=== PATIENT | female | born 1960 | race Caucasian/White ===

== ENCOUNTER → 2017-06-22 | Outpatient (CLI) | payer MEDICARE, OTHER ==
[2017-06-22 09:45] LABS: Basophils % (A) 0 %; CH 27.2; CHCM 30.9; Eosinophils # (A) 0.1 k/uL (0-0.7); Eosinophils % (A) 1 %; HCT 41.7 % (34.0-46.0); HDW 2.32; Hypochromasia Slight; Luc # (Auto) 0.14; Luc % (Auto) 3; Lymphocytes # (A) 1.4 k/uL (1.0-4.8); Lymphocytes % (A) 26 %; MCH 27.5 pg (25.0-35.0); MCHC 31.1 g/dL (31.0-37.0); MCV 88.5 fL (80.0-100.0); Mean Platelet Volume 7.6; Monocytes # (A) 0.3 k/uL (0-1.0); Monocytes % (A) 5 %; Neutrophils # (A) 3.5 k/uL (1.3-7.7); Neutrophils % (A) 65 %; RBC 4.72 m/uL (3.80-5.40); RDW 14.2 % (11.5-15.5); WBC 5.4 k/uL (3.8-10.6); WBC (Perox) 5.98
[2017-06-22 10:04] LABS: ALT 40 U/L (9-52); AST 22 U/L (14-36); Alkaline Phosphatase 64 U/L (38-126); Anion Gap 8 mmol/L; Blood Urea Nitrogen 15 mg/dL (7-17); Calcium 9.6 mg/dL (8.4-10.2); Carbon Dioxide 29 mmol/L (22-30); Chloride 104 mmol/L (98-107); Cholesterol 241 mg/dL (<200); Glucose 93 mg/dL (74-99); HDL Cholesterol 98 mg/dL (40-60); Non-African American GFR(MDRD) >60 (>60 ml/min/1.73 sqM); Potassium 4.3 mmol/L (3.5-5.1); Sodium 141 mmol/L (137-145); Total Bilirubin 0.3 mg/dL (0.2-1.3); Total Protein 7.1 g/dL (6.3-8.2)
== END | disposition home or self-care (01) ==
LOC: LABWHC1 08:36
PROVIDERS: ATTEND Internal Medicine
DX: E11.9 Type 2 diabetes mellitus without complications (principal); J44.9 Chronic obstructive pulmonary disease, unspecified; E55.9 Vitamin D deficiency, unspecified; Z13.9 Encounter for screening, unspecified
CPT/HCPCS: 36415; 80053; 80061; 82306; 85025; 86803

== ENCOUNTER → 2017-07-28 | Outpatient (CLI) | payer MEDICARE, OTHER ==
--- NOTE | 2017-08-02 09:10 | MM ---
Reason for exam: screening (asymptomatic). Last mammogram was performed 1 year and 3 months ago. History: Patient is postmenopausal and is nulliparous. Physical Findings: A clinical breast exam by your physician is recommended on an annual basis and results should be correlated with mammographic findings. MG Screening Mammo w CAD Bilateral CC and MLO view(s) were taken. Prior study comparison: May 11, 2016, bilateral MG 3d screening mammo w/cad. The breast tissue is extremely dense which could obscure a lesion on mammography. Stable benign calcifications. No significant changes when compared with prior studies. ASSESSMENT: Benign, BI-RAD 2 RECOMMENDATION: Routine screening mammogram of both breasts in 1 year.
== END | disposition home or self-care (01) ==
LOC: RADMAMWWP 07:48
PROVIDERS: ATTEND Internal Medicine
DX: Z12.31 Encounter for screening mammogram for malignant neoplasm of breast (principal)
CPT/HCPCS: 77067

== ENCOUNTER → 2017-12-05 | Outpatient (CLI) | payer MEDICARE, OTHER ==
[2017-12-05 08:25] LABS: Basophils % (A) 0 %; Eosinophils # (A) 0.1 k/uL (0-0.7); Eosinophils % (A) 2 %; HCT 43.6 % (34.0-46.0); HGB 13.9 gm/dL (11.4-16.0); Lymphocytes # (A) 1.7 k/uL (1.0-4.8); Lymphocytes % (A) 30 %; MCHC 31.9 g/dL (31.0-37.0); MCV 87.6 fL (80.0-100.0); Mean Platelet Volume 6.7; Monocytes # (A) 0.3 k/uL (0-1.0); Monocytes % (A) 5 %; Neutrophils # (A) 3.4 k/uL (1.3-7.7); Neutrophils % (A) 61 %; Platelet Count 199 k/uL (150-450); RBC 4.98 m/uL (3.80-5.40); RDW 13.6 % (11.5-15.5); WBC 5.6 k/uL (3.8-10.6)
[2017-12-05 08:47] LABS: ALT 27 U/L (9-52); AST 20 U/L (14-36); Albumin 4.3 g/dL (3.5-5.0); Alkaline Phosphatase 60 U/L (38-126); Anion Gap 10 mmol/L; Blood Urea Nitrogen 15 mg/dL (7-17); Calcium 9.5 mg/dL (8.4-10.2); Carbon Dioxide 32 mmol/L (22-30); Chloride 102 mmol/L (98-107); Cholesterol 230 mg/dL (<200); Glucose 139 mg/dL (74-99); HDL Cholesterol 108 mg/dL (40-60); LDL Cholesterol,Calculated 112 mg/dL (0-99); Potassium 4.3 mmol/L (3.5-5.1); Sodium 144 mmol/L (137-145); Total Bilirubin 0.3 mg/dL (0.2-1.3); Triglycerides 48 mg/dL (<150)
== END | disposition home or self-care (01) ==
LOC: LABWHC1 08:00
PROVIDERS: ATTEND Internal Medicine
DX: E11.9 Type 2 diabetes mellitus without complications (principal)
CPT/HCPCS: 36415; 80053; 80061; 85025

== ENCOUNTER → 2018-08-24 | Outpatient (CLI) | payer MEDICARE, OTHER ==
[2018-08-24 10:08] LABS: Basophils % (A) 0 %; Eosinophils # (A) 0.1 k/uL (0-0.7); Eosinophils % (A) 1 %; HCT 43.5 % (34.0-46.0); HGB 13.3 gm/dL (11.4-16.0); Hypochromasia Slight; Lymphocytes # (A) 1.7 k/uL (1.0-4.8); Lymphocytes % (A) 29 %; MCH 26.9 pg (25.0-35.0); MCHC 30.5 g/dL (31.0-37.0); Mean Platelet Volume 6.9; Monocytes # (A) 0.3 k/uL (0-1.0); Monocytes % (A) 5 %; Neutrophils # (A) 3.6 k/uL (1.3-7.7); Neutrophils % (A) 62 %; Platelet Count 196 k/uL (150-450); RBC 4.94 m/uL (3.80-5.40); RDW 13.5 % (11.5-15.5); WBC 5.8 k/uL (3.8-10.6)
[2018-08-24 17:58] LABS: Albumin 4.4 g/dL (3.80-4.90); Albumin/Globulin Ratio 1.91 (1.60-3.17); Anion Gap 13.2 mmol/L (4.00-12.00); Calcium 9.2 mg/dL (8.7-10.3); Carbon Dioxide 25.8 mmol/L (21.6-31.8); Globulin 2.3 g/dL (1.6-3.3); LDL Cholesterol,Calculated 144.4 mg/dL (0.0-131.0); Potassium 4.1 mmol/L (3.5-5.5); Total Bilirubin 0.3 mg/dL (0.3-1.2); Total Protein 6.7 g/dL (6.2-8.2); VLDL Calculation 14.6 mg/dL (5.00-40.00)
== END | disposition home or self-care (01) ==
LOC: LABWHC1 09:04 → EEVIPCON 09:04
PROVIDERS: ATTEND Internal Medicine
DX: E11.9 Type 2 diabetes mellitus without complications (principal); F79 Unspecified intellectual disabilities; E55.9 Vitamin D deficiency, unspecified
CPT/HCPCS: 36415; 80053; 80061; 82306; 84443; 85025

== ENCOUNTER → 2018-08-31 | Outpatient (CLI) | payer MEDICARE, OTHER ==
--- NOTE | 2018-09-17 14:28 | MM ---
Reason for exam: screening (asymptomatic). Last mammogram was performed 1 year and 1 month ago. History: Patient is postmenopausal and is nulliparous. Physical Findings: A clinical breast exam by your physician is recommended on an annual basis and results should be correlated with mammographic findings. MG Screening Mammo w CAD Bilateral CC and MLO view(s) were taken. Prior study comparison: July 28, 2017, bilateral MG screening mammo w CAD. May 11, 2016, bilateral MG 3d screening mammo w/cad. The breast tissue is extremely dense which could obscure a lesion on mammography. There are benign appearing round calcifications bilaterally. No significant changes when compared with prior studies. ASSESSMENT: Benign, BI-RAD 2 RECOMMENDATION: Routine screening mammogram of both breasts in 1 year.
== END | disposition home or self-care (01) ==
LOC: RADMAMWWP 08:54
PROVIDERS: ATTEND Internal Medicine
DX: Z12.31 Encounter for screening mammogram for malignant neoplasm of breast (principal)
CPT/HCPCS: 77067

== ENCOUNTER 2018-09-12 18:16 | Emergency (ER) | payer MEDICARE, OTHER ==
[2018-09-12 19:03] LABS: Glucose,Whole Blood 207 mg/dL (75-99)
[2018-09-12] MEDS ORDERED: SODIUM CHLORIDE 0.9% 1,000 ML IV STA (19:11)
--- NOTE | 2018-09-12 19:28 | ED ---
General Adult HPI - General Chief complaint: Dizziness Stated complaint: hyperglycemia, fall Time Seen by Provider: 09/12/18 18:35 Source: patient, family, RN notes reviewed Mode of arrival: ambulatory Limitations: no limitations - History of Present Illness Initial comments: Chief complaint and history of present illness this is a 58-year-old female who is autistic. She is here with her brother. The patient was adopted so her past family history is unknown. The patient fell backwards earlier while taking her shirt off to take a shower. Bruising her lateral right rib cage posteriorly. Accu-Chek at home and found the blood sugar every 218 which is higher than normal. She has had diarrhea several times within the past several days. Denies vomiting. Otherwise denies any headache or neuro deficits. - Related Data Home Medications Medication Instructions Recorded Confirmed Albuterol Inhaler [Ventolin Hfa 1 - 2 puff INHALATION RT-Q6H PRN 09/12/18 Inhaler] Atorvastatin Calcium [Lipitor] 10 mg PO HS 09/12/18 09/12/18 Hydrochlorothiazide 12.5mg Tab 12.5 mg PO DAILY 09/12/18 09/12/18 Linagliptin/Metformin HCl 1 tab PO BID 09/12/18 09/12/18 [Jentadueto 2.5 mg-850 mg Tab] Sertraline [Zoloft] 50 mg PO DAILY 09/12/18 09/12/18 glipiZIDE XL [Glucotrol Xl] 10 mg PO DAILY 09/12/18 09/12/18 Previous Rx's Medication Instructions Recorded Sulfamethox-Tmp 800-160Mg [Bactrim 1 each PO Q12HR #20 tab 09/13/18 DS 800-160 mg] Allergies Allergy/AdvReac Type Severity Reaction Status Date / Time No Known Allergies Allergy Verified 09/12/18 18:29 Review of Systems ROS Statement: Those systems with pertinent positive or pertinent negative responses have been documented in the HPI. Review of systems. Patient denies any headache no visual acuity changes. Patient does have strabismus. Denies neck pain. Has discomfort to her right flank with bruise from falling while taking her shirt off and being dizzy. Denies any loss of consciousness. brother states she is normally wobbly when she walks. Patient has had a cough lately. The patient is a non-insulin- dependent diabetic. Patient denies headache at this time she has discomfort to her right flank where she fell and bruised or so. No nausea vomiting she had diarrhea once or twice yesterday and today. Blood sugar as noted by her brother was 218 which is high than she normally is. Neurologically unchanged Past medical problems significant for being autistic. Non-insulin diabetes. Surgeries hysterectomy and jaw surgery. Family history patient was adopted at age 9. No apparent ALLERGIES. She quit smoking one year ago does not drink alcohol. ROS Other: All systems not noted in ROS Statement are negative. Past Medical History Past Medical History: Diabetes Mellitus Additional Past Medical History / Comment(s): autistic History of Any Multi-Drug Resistant Organisms: None Reported Past Surgical History: Hysterectomy, Orthopedic Surgery Additional Past Surgical History / Comment(s): jaw surgery Past Psychological History: Anxiety, Depression Smoking Status: Former smoker Past Alcohol Use History: None Reported Past Drug Use History: None Reported General Exam - General Exam Comments Initial Comments: General: The patient is awake and alert, patient is here because while taking off her shirt prior to having a shower she got dizzy and fell backwards. Vital signs are temperature 99.2 pulse 128 respiratory rate 18 pulse ox 95% room air Eye: Pupils are equal, round and reactive to light, extra-ocular movements are intact ; there is normal conjunctiva bilaterally. No signs of icterus. Patient has strabismus Ears, nose, mouth and throat: There are moist mucous membranes and no oral lesions. Neck: The neck is supple, there is no tenderness, no anterior cervical lymphadenopathy. Cardiovascular: Tachycardic heart rate, 125 initially. EKG was done showing heart rate 116, sinus tachycardia Respiratory: Lungs are clear to auscultation, respirations are non-labored, breath sounds are equal. No wheezes, stridor, rales, or rhonchi. Small area of bruising to the right flank area. No crepitus. Gastrointestinal: Soft, non-distended, non-tender abdomen without masses or organomegaly noted. There is no rebound or guarding present. No CVA tenderness. Bowel sounds are unremarkable. Back: There is no tenderness to palpation in the midline. There is no obvious deformity. No rashes noted. Area of bruising right flank no crepitus Musculoskeletal: Normal ROM, no tenderness, There is no pedal edema. There is no calf tenderness or swelling. Sensation intact. Pulses equal bilaterally 2+. Neurological: CN II-XII intact, There are no obvious motor or sensory deficits. Coordination appears grossly intact. Speech is normal. Performs all neuro tests normally. Patient does have autism. No evidence of any change per brother. Skin: Skin is warm and dry and no rashes or lesions are noted. Psychiatric: Cooperative, Limitations: no limitations Course Vital Signs 09/12/18 09/12/18 09/12/18 18:19 18:23 21:45 Temperature 99.2 F Pulse Rate 128 H 112 H Pulse Rate [ 112 H Pulse Oximetery ] Respiratory 18 18 16 Rate Blood Pressure 135/69 Blood Pressure 114/66 [Left Arm] O2 Sat by Pulse 95 96 Oximetry 09/12/18 09/12/18 09/12/18 22:30 23:21 23:23 Temperature Pulse Rate Pulse Rate [ 112 H Pulse Oximetery ] Respiratory 15 19 Rate Blood Pressure 134/60 Blood Pressure 145/72 129/65 [Left Arm] O2 Sat by Pulse 98 95 Oximetry EKG Findings - EKG Comments: EKG Findings:: EKG was done and reviewed at 1915 showing sinus tachycardia rate 116 possible right atrial enlargement no acute ST elevation no ectopy. IN interval was 112 QRS 80 QT 336 QTc 467. No old EKG available to compare to. Dr. Hale Medical Decision Making - Medical Decision Making medical decision making; this is a 58-year-old female who is autistic. She is here with her brother. She states that while taking her shirt off to take a shower she felt dizzy and fell backwards. No loss of consciousness. She has some bruising for left flank area. Patient arrived emergency room alert and oriented. Initial vital signs showed a rapid heart rate 128 temperature 99.2 blood pressure 127/68. Labs show white count 11 hemoglobin 13 hematocrit of 41. Potassium 3.7. BUN 15 creatinine 0.51 GFR greater than 90. Glucose 200. Troponin less than 0.012. Urine shows 4 red to 15 whites. The acetone is negative. Chest x-ray was done and reviewed by radiologist his findings are heart and mediastinum are normal. Lungs are clear consolidation. There is some mild reticular density and linear density at the lung bases. There are no hilar masses. There is no heart failure. There is mild thoracic dextroscoliosis. Impression; there is minimal subungual subsegmental atelectasis at the lung bases. Normal heart. As read by Dr. Ramirez. The patient was hydrated with 2 L of fluid. Heart rate came down to the 101- 106 range. Orthostatics are performed on several occasions with much improvement. The patient denies feeling dizzy. The brother states he is comfortable taking her home. I told them both that is very important for change positions slowly. Chances of syncopal episodes or dizziness with poor balance increases with rapid movement. The patient was given Bactrim and emergency room. Prescription Bactrim will be given. One tablet twice a day. He suggested the patient follow-up with family doctor. A repeat urinalysis in one week after finishing out a box. She developed any change in the patient's condition such as fever or sweating her brother was told return emergency room immediately. - Lab Data Result diagrams: 09/12/18 18:46 09/12/18 18:46 Lab Results 09/12/18 09/12/18 09/12/18 Range/Units 18:46 18:46 18:46 WBC 11.4 H (3.8-10.6) k/uL RBC 4.88 (3.80-5.40) m/uL Hgb 13.5 (11.4-16.0) gm/dL Hct 41.5 (34.0-46.0) % MCV 85.0 (80.0-100.0) fL MCH 27.6 (25.0-35.0) pg MCHC 32.5 (31.0-37.0) g/dL RDW 13.1 (11.5-15.5) % Plt Count 196 (150-450) k/uL Neutrophils % 83 % Lymphocytes % 9 % Monocytes % 6 % Eosinophils % 0 % Basophils % 0 % Neutrophils # 9.5 H (1.3-7.7) k/uL Lymphocytes # 1.0 (1.0-4.8) k/uL Monocytes # 0.6 (0-1.0) k/uL Eosinophils # 0.1 (0-0.7) k/uL Basophils # 0.0 (0-0.2) k/uL Sodium 133 L (137-145) mmol/L Potassium 3.7 (3.5-5.1) mmol/L Chloride 92 L (98-107) mmol/L Carbon Dioxide 28 (22-30) mmol/L Anion Gap 13 mmol/L BUN 15 (7-17) mg/dL Creatinine 0.51 L (0.52-1.04) mg/dL Est GFR (CKD-EPI)AfAm >90 (>60 ml/min/1.73 sqM) Est GFR (CKD-EPI)NonAf >90 (>60 ml/min/1.73 sqM) Glucose 200 H (74-99) mg/dL POC Glucose (mg/dL) (75-99) mg/dL POC Glu [facility] Rn ID Calcium 9.4 (8.4-10.2) mg/dL Total Bilirubin 0.9 (0.2-1.3) mg/dL AST 22 (14-36) U/L ALT 29 (9-52) U/L Alkaline Phosphatase 106 (38-126) U/L Troponin I <0.012 (0.000-0.034) ng/mL Total Protein 7.9 (6.3-8.2) g/dL Albumin 4.5 (3.5-5.0) g/dL Urine Color Urine Appearance (Clear) Urine pH (5.0-8.0) Ur Specific [place] (1.001-1.035) Urine Protein (Negative) Urine Glucose (UA) (Negative) Urine Ketones (Negative) Urine Blood (Negative) Urine Nitrite (Negative) Urine Bilirubin (Negative) Urine Urobilinogen (<2.0) mg/dL Ur Leukocyte Esterase (Negative) Urine RBC (0-5) /hpf Urine WBC (0-5) /hpf Ur Squamous Epith Cells (0-4) /hpf Hyaline Casts (0-2) /lpf Urine Mucus (None) /hpf Acetone, Qual Negative (Negative) 09/12/18 09/12/18 Range/Units 18:48 20:02 WBC (3.8-10.6) k/uL RBC (3.80-5.40) m/uL Hgb (11.4-16.0) gm/dL Hct (34.0-46.0) % MCV (80.0-100.0) fL MCH (25.0-35.0) pg MCHC (31.0-37.0) g/dL RDW (11.5-15.5) % Plt Count (150-450) k/uL Neutrophils % % Lymphocytes % % Monocytes % % Eosinophils % % Basophils % % Neutrophils # (1.3-7.7) k/uL Lymphocytes # (1.0-4.8) k/uL Monocytes # (0-1.0) k/uL Eosinophils # (0-0.7) k/uL Basophils # (0-0.2) k/uL Sodium (137-145) mmol/L Potassium (3.5-5.1) mmol/L Chloride (98-107) mmol/L Carbon Dioxide (22-30) mmol/L Anion Gap mmol/L BUN (7-17) mg/dL Creatinine (0.52-1.04) mg/dL Est GFR (CKD-EPI)AfAm (>60 ml/min/1.73 sqM) Est GFR (CKD-EPI)NonAf (>60 ml/min/1.73 sqM) Glucose (74-99) mg/dL POC Glucose (mg/dL) 207 H (75-99) mg/dL POC Glu [facility] Rn JOSE Allison Bocanegra Calcium (8.4-10.2) mg/dL Total Bilirubin (0.2-1.3) mg/dL AST (14-36) U/L ALT (9-52) U/L Alkaline Phosphatase (38-126) U/L Troponin I (0.000-0.034) ng/mL Total Protein (6.3-8.2) g/dL Albumin (3.5-5.0) g/dL Urine Color Yellow Urine Appearance Clear (Clear) Urine pH 6.0 (5.0-8.0) Ur Specific [place] 1.019 (1.001-1.035) Urine Protein Trace H (Negative) Urine Glucose (UA) 4+ H (Negative) Urine Ketones 1+ H (Negative) Urine Blood Negative (Negative) Urine Nitrite Negative (Negative) Urine Bilirubin Negative (Negative) Urine Urobilinogen <2.0 (<2.0) mg/dL Ur Leukocyte Esterase Small H (Negative) Urine RBC 4 (0-5) /hpf Urine WBC 15 H (0-5) /hpf Ur Squamous Epith Cells <1 (0-4) /hpf Hyaline Casts 3 H (0-2) /lpf Urine Mucus Rare H (None) /hpf Acetone, Qual (Negative) Disposition Clinical Impression: Dizziness, UTI (urinary tract infection) Disposition: HOME SELF-CARE Condition: Fair Instructions (If sedation given, give patient instructions): Dizziness (ED), Urinary Tract Infection in Women (ED) Additional Instructions: Take one pill twice a day until completed. It is suggested to get a repeat urinalysis approximately one week after he finished antibiotic. Use Tylenol for pain. If he develop fever sweats return emergency room or family C her family doctor. Change positions slowly. Stay hydrated Prescriptions: Sulfamethox-Tmp 800-160Mg [Bactrim DS 800-160 mg] 1 each PO Q12HR #20 tab Is patient prescribed a controlled substance at d/c from ED?: No Referrals: Jose Strange MD [Primary Care Provider] - 1-2 days Time of Disposition: 00:41
[2018-09-12 20:05] LABS: Basophils % (A) 0 %; Eosinophils # (A) 0.1 k/uL (0-0.7); Eosinophils % (A) 0 %; HCT 41.5 % (34.0-46.0); HGB 13.5 gm/dL (11.4-16.0); Lymphocytes % (A) 9 %; MCH 27.6 pg (25.0-35.0); MCHC 32.5 g/dL (31.0-37.0); Mean Platelet Volume 6.7; Monocytes # (A) 0.6 k/uL (0-1.0); Monocytes % (A) 6 %; Neutrophils # (A) 9.5 k/uL (1.3-7.7); Neutrophils % (A) 83 %; Platelet Count 196 k/uL (150-450); RBC 4.88 m/uL (3.80-5.40); RDW 13.1 % (11.5-15.5); WBC 11.4 k/uL (3.8-10.6)
[2018-09-12 20:15] LABS: ALT 29 U/L (9-52); AST 22 U/L (14-36); Albumin 4.5 g/dL (3.5-5.0); Alkaline Phosphatase 106 U/L (38-126); Anion Gap 13 mmol/L; Blood Urea Nitrogen 15 mg/dL (7-17); Calcium 9.4 mg/dL (8.4-10.2); Carbon Dioxide 28 mmol/L (22-30); Chloride 92 mmol/L (98-107); Glucose 200 mg/dL (74-99); Potassium 3.7 mmol/L (3.5-5.1); Sodium 133 mmol/L (137-145); Total Bilirubin 0.9 mg/dL (0.2-1.3); Total Protein 7.9 g/dL (6.3-8.2)
[2018-09-12 20:32] LABS: Appearance,Urine Clear (Clear); Bilirubin,Urine Negative (Negative); Blood,Urine Negative (Negative); Color,Urine Yellow; Glucose,Urine (UA) 4+ (Negative); Hyaline Casts,Urine 3 /lpf (0-2); Ketones,Urine 1+ (Negative); Leukocyte Esterase,Urine Small (Negative); Mucus,Urine Rare /hpf; Nitrite,Urine Negative (Negative); Protein,Urine Trace (Negative); RBC,Urine 4 /hpf (0-5); Specific Gravity,Urine 1.019 (1.001-1.035); Squamous Epithelial Cell,Urine <1 /hpf (0-4); Urobilinogen,Urine <2.0 mg/dL (<2.0); WBC,Urine 15 /hpf (0-5)
--- NOTE | 2018-09-12 20:35 | XR ---
EXAMINATION TYPE: XR chest 2V DATE OF EXAM: 09/12/2018 COMPARISON: NONE HISTORY: Tachycardia TECHNIQUE: Frontal and lateral views of the chest are obtained. FINDINGS: Heart and mediastinum are normal. Lungs are clear of consolidation. There is some mild ret icular density and linear density at the lung bases. There are no hilar masses. There is no heart oj lure. There is mild thoracic dextroscoliosis. IMPRESSION: There is minimal subsegmental atelectasis at the lung bases. Normal heart.
[2018-09-12 23:35] VITALS: RESP 19
[2018-09-12] MEDS ORDERED: SULFAMETH-TMP DS STARTER PACK 2 TAB BTL PO STA (23:42)
[2018-09-13 02:12] VITALS: BP 128/66; PULSE 107; TEMP 98.8
[2018-09-13 04:36] LABS: Hemoglobin A1C 6.9 % (4.0-6.0)
== END 2018-09-13 00:50 | disposition home or self-care (01) ==
LOC: EC 18:16
DX: S30.1XXA Contusion of abdominal wall, initial encounter (principal); N39.0 Urinary tract infection, site not specified; R42 Dizziness and giddiness; R19.7 Diarrhea, unspecified; E11.9 Type 2 diabetes mellitus without complications; F84.0 Autistic disorder; F32.9 Major depressive disorder, single episode, unspecified; F41.9 Anxiety disorder, unspecified; Z87.891 Personal history of nicotine dependence; Z79.84 Long term (current) use of oral hypoglycemic drugs; Z79.899 Other long term (current) drug therapy; W19.XXXA Unspecified fall, initial encounter; Y92.89 Other specified places as the place of occurrence of the external cause
CPT/HCPCS: 36415; 71046; 80053; 81001; 82009; 83036; 84484; 85025; 93005; 96360; 99284

== ENCOUNTER → 2018-09-17 | Outpatient (CLI) | payer MEDICARE, OTHER | END | disposition home or self-care (01) | LOC: RADMAMWWP 13:30 | PROVIDERS: ATTEND Internal Medicine | DX: Z53.9 Procedure and treatment not carried out, unspecified reason (principal) ==

== ENCOUNTER → 2019-09-06 | Outpatient (CLI) | payer MEDICARE, OTHER ==
[2019-09-06 09:23] LABS: HCT 46.5 % (34.0-46.0); HGB 14.1 gm/dL (11.4-16.0); MCH 26.9 pg (25.0-35.0); MCHC 30.2 g/dL (31.0-37.0); MCV 89.1 fL (80.0-100.0); Mean Platelet Volume 7.5; Platelet Count 184 k/uL (150-450); RBC 5.21 m/uL (3.80-5.40); RDW 13.6 % (11.5-15.5); WBC 6.8 k/uL (3.8-10.6)
[2019-09-06 09:42] LABS: ALT 21 U/L (4-34); AST 27 U/L (14-36); African American GFR (CKD) >90 (>60 ml/min/1.73 sqM); Albumin 4.8 g/dL (3.5-5.0); Alkaline Phosphatase 74 U/L (38-126); Anion Gap 10 mmol/L; Blood Urea Nitrogen 17 mg/dL (7-17); Calcium 9.6 mg/dL (8.4-10.2); Carbon Dioxide 28 mmol/L (22-30); Chloride 102 mmol/L (98-107); Cholesterol 196 mg/dL (<200); Glucose 144 mg/dL (74-99); HDL Cholesterol 110 mg/dL (40-60); LDL Cholesterol,Calculated 73 mg/dL (0-99); Non-African American GFR(CKD) >90 (>60 ml/min/1.73 sqM); Potassium 4.7 mmol/L (3.5-5.1); Sodium 140 mmol/L (137-145); Total Bilirubin 0.4 mg/dL (0.2-1.3); Total Protein 7.9 g/dL (6.3-8.2); Triglycerides 63 mg/dL (<150)
[2019-09-06 09:55] LABS: T4, Free (Free Thyroxine) 1.06 ng/dL (0.78-2.19)
[2019-09-06 17:30] LABS: Mumps Virus IgG Ab Interp POSITIVE (NEGATIVE); Mumps Virus IgG Antibody 5.6 AI
--- NOTE | 2019-09-09 09:42 | MM ---
Reason for exam: screening (asymptomatic). Last mammogram was performed 1 year ago. History: Patient is postmenopausal and is nulliparous. Physical Findings: A clinical breast exam by your physician is recommended on an annual basis and results should be correlated with mammographic findings. MG 3D Screening Mammo W/Cad Bilateral CC and MLO view(s) were taken. Prior study comparison: August 31, 2018, bilateral MG screening mammo w CAD. July 28, 2017, bilateral MG screening mammo w CAD. The breast tissue is heterogeneously dense. This may lower the sensitivity of mammography. Stable benign calcifications. There is no discrete abnormality. No significant changes when compared with prior studies. ASSESSMENT: Benign, BI-RAD 2 RECOMMENDATION: Routine screening mammogram of both breasts in 1 year.
== END | disposition home or self-care (01) ==
LOC: RADMAMWWP 08:51
PROVIDERS: ATTEND Internal Medicine
DX: Z12.31 Encounter for screening mammogram for malignant neoplasm of breast (principal); Z00.01 Encounter for general adult medical examination with abnormal findings; Z13.220 Encounter for screening for lipoid disorders; R53.83 Other fatigue; Z13.9 Encounter for screening, unspecified
CPT/HCPCS: 77063; 77067; 80053; 80061; 82306; 84439; 84443; 85027; 86735; 86762; 86765

== ENCOUNTER 2020-06-22 16:05 | Emergency (ER) | payer MEDICARE, OTHER ==
[2020-06-22 16:15] VITALS: BP 163/91; PULSE 95; RESP 18; TEMP 98.8
[2020-06-22] MEDS ORDERED: ACETAMINOPHEN TAB 325 MG TAB PO STA (16:44)
--- NOTE | 2020-06-22 16:55 | ED ---
General Adult HPI - General Chief complaint: Extremity Injury, Upper Stated complaint: Fall, R Hand/Arm Pain Time Seen by Provider: 06/22/20 16:18 Source: patient, RN notes reviewed Mode of arrival: wheelchair Limitations: no limitations - History of Present Illness Initial comments: 60-year-old female with a past medical history autism, diabetes mellitus presents to the emergency room for a chief complaint of right hand pain. Patient states she was walking in her yard when she tripped over her feet and fell. No lightheadedness preceding this fall. Patient did not hit her head. She reports she has bruising to the back of her right hand. She denies any other injuries.Patient has no other complaints at this time including shortness of breath, chest pain, abdominal pain, nausea or vomiting, headache, or visual changes. - Related Data Home Medications Medication Instructions Recorded Confirmed Albuterol Inhaler (Mhu) [Ventolin 1 - 2 puff INHALATION RT-Q6H PRN 09/12/18 09/12/18 Hfa Inhaler] Atorvastatin Calcium [Lipitor] 10 mg PO HS 09/12/18 09/12/18 Hydrochlorothiazide 12.5mg Tab 12.5 mg PO DAILY 09/12/18 09/12/18 Linagliptin/Metformin HCl 1 tab PO BID 09/12/18 09/12/18 [Jentadueto 2.5 mg-850 mg Tab] Sertraline [Zoloft] 50 mg PO DAILY 09/12/18 09/12/18 glipiZIDE XL [Glucotrol Xl] 10 mg PO DAILY 09/12/18 09/12/18 Previous Rx's Medication Instructions Recorded Sulfamethox-Tmp 800-160Mg [Bactrim 1 each PO Q12HR #20 tab 09/13/18 DS 800-160 mg] Allergies Allergy/AdvReac Type Severity Reaction Status Date / Time No Known Allergies Allergy Verified 09/12/18 18:29 Review of Systems ROS Statement: Those systems with pertinent positive or pertinent negative responses have been documented in the HPI. ROS Other: All systems not noted in ROS Statement are negative. Past Medical History Past Medical History: Diabetes Mellitus Additional Past Medical History / Comment(s): autistic History of Any Multi-Drug Resistant Organisms: None Reported Past Surgical History: Hysterectomy, Orthopedic Surgery Additional Past Surgical History / Comment(s): jaw surgery Past Psychological History: Anxiety, Depression Smoking Status: Never smoker Past Alcohol Use History: None Reported Past Drug Use History: None Reported General Exam Limitations: no limitations General appearance: alert, in no apparent distress Head exam: Present: atraumatic, normocephalic, normal inspection Eye exam: Present: normal appearance, PERRL, EOMI. Absent: scleral icterus, conjunctival injection, periorbital swelling ENT exam: Present: normal exam, mucous membranes moist Neck exam: Present: normal inspection, full ROM. Absent: tenderness, meningismus, lymphadenopathy Respiratory exam: Present: normal lung sounds bilaterally. Absent: respiratory distress, wheezes, rales, rhonchi, stridor Cardiovascular Exam: Present: regular rate, normal rhythm, normal heart sounds. Absent: systolic murmur, diastolic murmur, rubs, gallop, clicks Extremities exam: Present: tenderness (Tenderness noted to the dorsum of the right hand and right wrist.), normal capillary refill (Capillary refill seconds in the right upper extremity. Radial pulse 2+.), joint swelling (Patient has contusion noted over the right dorsal hand and wrist.), other (Sensation intact right upper extremity.). Absent: full ROM (Patient has limited flexion and extension of the right wrist secondary to pain. Patient is able to move all fingers. Full range motion of the right elbow.), pedal edema, calf tenderness Course Vital Signs 06/22/20 16:13 Temperature 98.8 F Pulse Rate 95 Respiratory 18 Rate Blood Pressure 163/91 O2 Sat by Pulse 98 Oximetry Procedures - Orthopedic Splinting/Casting Injury #1 Side: right Upper Extremity Injury Location: short arm Upper Extremity Immobilizer: posterior splint Additional Comments: Neurovascular status intact after splint applied Medical Decision Making - Medical Decision Making HPI and physical exam as documented. Neurovascular status intact. X-ray of the right forearm shows a distal metaphyseal radial fracture. X-ray of the hand shows no fracture-dislocation. Patient was placed in a volar wrist splint. Discussed care instructions including Tylenol for pain and Rice therapy. Discussed following up with orthopedics. Discussed returning for any worsening symptoms. I discussed this case and reviewed films with attending Dr. Mcgregor who agrees with this assessment and treatment plan. Disposition Clinical Impression: Wrist fracture Disposition: HOME SELF-CARE Condition: Good Instructions (If sedation given, give patient instructions): Wrist Fracture in Adults (ED), R.I.C.E. Treatment (ED) Additional Instructions: Please take Tylenol for pain. Rest ice and elevate the right wrist. Keep splint dry. Follow-up with orthopedics by calling tomorrow for an appointment. Return to the emergency room for any worsening symptoms. Is patient prescribed a controlled substance at d/c from ED?: No Referrals: Jose Strange MD [Primary Care Provider] - 1-2 days Fab Duenas DO [Doctor of Osteopathic Medicine] - 1-2 days Time of Disposition: 17:45
--- NOTE | 2020-06-22 17:03 | XR ---
EXAMINATION TYPE: XR forearm RT DATE OF EXAM: 06/22/2020 COMPARISON: None HISTORY: Right forearm pain TECHNIQUE: 2 view right forearm FINDINGS: There is a small buckle fracture of the distal metaphyseal radius. No additional fractures are evident. Diffuse soft tissue swelling is present. IMPRESSION: 1. Distal metaphyseal radial fracture.
--- NOTE | 2020-06-22 17:04 | XR ---
Right hand HISTORY: Trauma and pain 3 views of the right hand Bone mineralization is reduced. Arthropathy changes are noted. Alignment is maintained. There is soft tissue swelling. Lateral exam somewhat limited. IMPRESSION: No fracture or dislocation.
== END 2020-06-22 17:57 | disposition home or self-care (01) ==
LOC: EC 16:05
DX: S52.301A Unspecified fracture of shaft of right radius, initial encounter for closed fracture (principal); E11.9 Type 2 diabetes mellitus without complications; F41.9 Anxiety disorder, unspecified; F32.9 Major depressive disorder, single episode, unspecified; Z79.899 Other long term (current) drug therapy; Z79.84 Long term (current) use of oral hypoglycemic drugs; W01.0XXA Fall on same level from slipping, tripping and stumbling without subsequent striking against object, initial encounter; Y93.01 Activity, walking, marching and hiking; Y92.096 Garden or yard of other non-institutional residence as the place of occurrence of the external cause
CPT/HCPCS: 29125; 99283

== ENCOUNTER → 2020-10-23 | Outpatient (CLI) | payer MEDICARE, OTHER ==
[2020-10-23 11:35] LABS: Basophils % (A) 0 %; Eosinophils # (A) 0.1 k/uL (0-0.7); Eosinophils % (A) 1 %; HCT 39.4 % (34.0-46.0); HGB 13.2 gm/dL (11.4-16.0); Lymphocytes # (A) 1.5 k/uL (1.0-4.8); Lymphocytes % (A) 22 %; MCH 28.6 pg (25.0-35.0); MCHC 33.4 g/dL (31.0-37.0); MCV 85.6 fL (80.0-100.0); Mean Platelet Volume 6.9; Monocytes # (A) 0.3 k/uL (0-1.0); Monocytes % (A) 5 %; Neutrophils # (A) 4.9 k/uL (1.3-7.7); Neutrophils % (A) 70 %; Platelet Count 206 k/uL (150-450); RDW 13.4 % (11.5-15.5); WBC 6.9 k/uL (3.8-10.6)
[2020-10-23 11:36] LABS: Appearance,Urine Clear (Clear); Bilirubin,Urine Negative (Negative); Blood,Urine Negative (Negative); Color,Urine Yellow; Glucose,Urine (UA) Negative (Negative); Ketones,Urine 1+ (Negative); Leukocyte Esterase,Urine Negative (Negative); Nitrite,Urine Negative (Negative); PH, Urine 6.5 (5.0-8.0); Protein,Urine Negative (Negative); Specific Gravity,Urine 1.016 (1.001-1.035); Urobilinogen,Urine <2.0 mg/dL (<2.0)
[2020-10-23 12:11] LABS: ALT 21 U/L (4-34); AST 33 U/L (14-36); African American GFR (CKD) >90 (>60 ml/min/1.73 sqM); Albumin 4.6 g/dL (3.5-5.0); Alkaline Phosphatase 60 U/L (38-126); Anion Gap 10 mmol/L; Blood Urea Nitrogen 13 mg/dL (7-17); Calcium 9.6 mg/dL (8.4-10.2); Carbon Dioxide 25 mmol/L (22-30); Chloride 100 mmol/L (98-107); Cholesterol 182 mg/dL (<200); Glucose 119 mg/dL (74-99); HDL Cholesterol 86 mg/dL (40-60); LDL Cholesterol,Calculated 84 mg/dL (0-99); Non-African American GFR(CKD) >90 (>60 ml/min/1.73 sqM); Potassium 4.6 mmol/L (3.5-5.1); Sodium 135 mmol/L (137-145); Total Bilirubin 0.5 mg/dL (0.2-1.3); Total Protein 7.4 g/dL (6.3-8.2); Triglycerides 61 mg/dL (<150)
--- NOTE | 2020-10-26 10:44 | MM ---
Reason for exam: screening (asymptomatic). Last mammogram was performed 1 year and 2 months ago. History: Patient is postmenopausal and is nulliparous. Physical Findings: A clinical breast exam by your physician is recommended on an annual basis and results should be correlated with mammographic findings. MG 3D Screening Mammo W/Cad Bilateral CC, MLO, and XCCL view(s) were taken. Prior study comparison: September 06, 2019, bilateral MG 3d screening mammo w/cad. August 31, 2018, bilateral MG screening mammo w CAD. The breast tissue is extremely dense which could obscure a lesion on mammography. Stable benign calcifications. There is no discrete abnormality. No significant changes when compared with prior studies. ASSESSMENT: Benign, BI-RAD 2 RECOMMENDATION: Routine screening mammogram of both breasts in 1 year.
== END | disposition home or self-care (01) ==
LOC: RADMAMWWP 10:08
PROVIDERS: ATTEND Internal Medicine
DX: Z12.31 Encounter for screening mammogram for malignant neoplasm of breast (principal)
CPT/HCPCS: 36415; 77063; 77067; 80053; 80061; 81003; 82306; 85025

== ENCOUNTER → 2021-11-04 | Outpatient (CLI) | payer MEDICARE, OTHER ==
[2021-11-04 14:30] LABS: Basophils # (A) 0.02 X 10*3/uL (0.00-0.10); Basophils % (A) 0.4 %; Eosinophils # (A) 0.12 X 10*3/uL (0.04-0.35); Eosinophils % (A) 2.1 %; HGB 12.1 g/dL (12.0-15.0); Immature Grans, Automated 0.2 %; Lymphocytes # (A) 1.65 X 10*3/uL (0.90-5.00); MCH 26.9 pg (27.0-32.0); MCHC 30.3 g/dL (32.0-37.0); MCV 89.1 fL (80.0-97.0); Monocytes # (A) 0.43 X 10*3/uL (0.20-1.00); Monocytes % (A) 7.6 %; NRBC Per 100 WBC 0 /100 WBCS (0.0-0.0); Neutrophils # (A) 3.46 X 10*3/uL (1.80-7.70); Neutrophils % (A) 60.7 %; Platelet Count 195 X 10*3/uL (140-440); RBC 4.49 X 10*6/uL (4.10-5.20); RDW 13.6 % (11.5-14.5); WBC 5.69 X 10*3/uL (4.50-10.00)
[2021-11-04 14:57] LABS: ALT 17 U/L (8-44); AST 23 U/L (13-35); African American GFR (CKD) 115.6 (60.0-200.0); Albumin 4.4 g/dL (3.8-4.9); Albumin/Globulin Ratio 1.63 (1.60-3.17); Alkaline Phosphatase 57 U/L (41-126); Blood Urea Nitrogen 10.8 mg/dL (9.0-27.0); Calcium 9.4 mg/dL (8.7-10.3); Carbon Dioxide 24.4 mmol/L (20.0-27.5); Chloride 99 mmol/L (96-109); Chol/HDL Ratio 2.06 Ratio; Globulin 2.7 g/dL (1.6-3.3); Glucose 113 mg/dL (70-110); LDL Cholesterol,Calculated 82.1 mg/dL (0.0-131.0); Non-African American GFR(CKD) 99.8 (60.0-200.0); Potassium 4.9 mmol/L (3.5-5.5); Sodium 133 mmol/L (135-145); Total Bilirubin <0.15 mg/dL (0.30-1.20); Total Protein 7.1 g/dL (6.2-8.2)
== END | disposition home or self-care (01) ==
LOC: LABWHC1 08:06
PROVIDERS: ATTEND Family Medicine
DX: E11.8 Type 2 diabetes mellitus with unspecified complications (principal); E78.5 Hyperlipidemia, unspecified; E55.9 Vitamin D deficiency, unspecified
CPT/HCPCS: 36415; 80053; 80061; 82306; 85025

== ENCOUNTER → 2021-11-25 | Outpatient (CLI) | payer MEDICARE, OTHER ==
--- NOTE | 2021-11-26 11:20 | MM ---
Reason for exam: screening (asymptomatic). Last mammogram was performed 1 year and 1 month ago. History: Patient is postmenopausal and is nulliparous. Physical Findings: A clinical breast exam by your physician is recommended on an annual basis and results should be correlated with mammographic findings. MG 3D Screening Mammo W/Cad Bilateral CC and MLO view(s) were taken. XCCL view(s) were taken of the left breast. Prior study comparison: October 23, 2020, bilateral MG 3d screening mammo w/cad. September 06, 2019, bilateral MG 3d screening mammo w/cad. The breast tissue is heterogeneously dense. This may lower the sensitivity of mammography. There are benign appearing round calcifications bilaterally. Asymmetric breast tissue left posterior upper quadrant. There is no discrete abnormality. ASSESSMENT: Benign, BI-RAD 2 RECOMMENDATION: Routine screening mammogram of both breasts in 1 year. Some advise bilateral ultrasound surveillance in patient with dense tissue.
== END | disposition home or self-care (01) ==
LOC: RADMAMWWP 09:15
PROVIDERS: ATTEND Family Medicine
DX: Z12.31 Encounter for screening mammogram for malignant neoplasm of breast (principal); Z78.0 Asymptomatic menopausal state
CPT/HCPCS: 77063; 77067

== ENCOUNTER 2021-12-11 11:17 | Emergency (ER) | payer MEDICARE, OTHER ==
--- NOTE | 2021-12-11 12:32 | XR ---
EXAMINATION TYPE: XR wrist complete RT, XR hand complete RT DATE OF EXAM: 12/11/2021 CLINICAL HISTORY: Pain after recent fall injury. TECHNIQUE: Frontal, lateral and oblique images of the right wrist and hand are obtained. 4 view scaphoid view is performed. COMPARISON: None FINDINGS: Osseous structures are demineralized. There is no acute fracture/dislocation evident in th e right wrist. Moderate narrowing base of first metacarpal. Moderate triscaphe joint degenerative ruth nges. The overlying soft tissue appears unremarkable. Images of right hand show no acute displaced fracture. Moderate narrowing throughout the PIP and PIP joints of the phalanges with mild diffuse soft tissue swelling. IMPRESSION: There is no acute fracture or dislocation in the right hand or wrist.
--- NOTE | 2021-12-11 12:37 | CT ---
EXAMINATION TYPE: CT brain [facility] DATE OF EXAM: 12/11/2021 COMPARISON: NONE HISTORY: Fall injury with headache and neck pain CT DLP: 1189.5 mGycm. Automated Exposure Control for Dose Reduction was Utilized. TECHNIQUE: CT scan of the head and cervical spine are performed without contrast. FINDINGS: There is no acute intracranial hemorrhage or midline shift identified. Mild ventricular a nd sulcal prominence. Carter-white matter differentiation fairly well maintained. The globes are intact and the visualized sinuses are clear. The calvarium is intact. Cervical spine is visualized in its entirety from C1 through upper thoracic levels and demonstrates s omewhat straightened alignment without evidence of acute fracture or dislocation. Prevertebral soft tissue appears within normal limits. The C1-C2 articulation is within normal limits on the coronal i mages. Vertebral body heights are maintained. Mild to moderate spurring and disc space narrowing C5-C 6 and C6-C7 levels. Posterior spur disc complexes efface the anterior thecal sac at both levels. Axi al images show right sided thyroid nodule confirmed on coronal image 2. Consider nonemergent thyroid ultrasound to further evaluate if this is not known finding. Lung apices show no pneumothorax. Mild e mphysematous change is present. IMPRESSION: 1. There is no acute fracture or dislocation evident in the cervical spine. 2. No acute intracranial hemorrhage or midline shift is seen.
--- NOTE | 2021-12-11 13:34 | ED ---
Fall HPI - General Chief Complaint: Fall Stated Complaint: Fall/Rt hand injury Time Seen by Provider: 12/11/21 11:29 Source: patient, family Mode of arrival: ambulatory - History of Present Illness Initial Comments: Patient is a 61-year-old female presenting with chief complaint of right hand pain. Patient states that she tripped and fell yesterday landing on the right hand, she also hit her head. Denies any loss of consciousness or use of blood thinners. She currently has an abrasion to the nose. She admits to hand swelling which limits range of motion. She has been icing and taking Motrin and Tylenol as needed. She wants to ensure there is not a fracture. She denies any numbness, tingling, weakness, vision or hearing changes, nausea, vomiting, headache, dizziness, seizure, fever, chills, break in the skin or penetrating injury. - Related Data Home Medications Medication Instructions Recorded Confirmed Albuterol Inhaler (Mhu) [Ventolin 1 - 2 puff INHALATION RT-Q6H PRN 09/12/18 09/12/18 Hfa Inhaler] Atorvastatin Calcium [Lipitor] 10 mg PO HS 09/12/18 09/12/18 Hydrochlorothiazide 12.5mg Tab 12.5 mg PO DAILY 09/12/18 09/12/18 Linagliptin/Metformin HCl 1 tab PO BID 09/12/18 09/12/18 [Jentadueto 2.5 mg-850 mg Tab] Sertraline [Zoloft] 50 mg PO DAILY 09/12/18 09/12/18 glipiZIDE XL [Glucotrol Xl] 10 mg PO DAILY 09/12/18 09/12/18 Previous Rx's Medication Instructions Recorded Sulfamethox-Tmp 800-160Mg [Bactrim 1 each PO Q12HR #20 tab 09/13/18 DS 800-160 mg] Allergies Allergy/AdvReac Type Severity Reaction Status Date / Time No Known Allergies Allergy Verified 12/11/21 11:21 Review of Systems ROS Statement: Those systems with pertinent positive or pertinent negative responses have been documented in the HPI. ROS Other: All systems not noted in ROS Statement are negative. Past Medical History Past Medical History: Diabetes Mellitus Additional Past Medical History / Comment(s): autistic History of Any Multi-Drug Resistant Organisms: None Reported Past Surgical History: Hysterectomy, Orthopedic Surgery Additional Past Surgical History / Comment(s): jaw surgery Past Psychological History: Anxiety, Depression Smoking Status: Never smoker Past Alcohol Use History: None Reported Past Drug Use History: None Reported General Exam Limitations: no limitations General appearance: alert, in no apparent distress Head exam: Present: normocephalic, normal inspection, other (Abrasion to the nose) Eye exam: Present: normal appearance, EOMI. Absent: scleral icterus, periorbital swelling, periorbital tenderness Neck exam: Present: normal inspection Respiratory exam: Present: normal lung sounds bilaterally. Absent: respiratory distress, wheezes, rales, rhonchi, stridor Cardiovascular Exam: Present: regular rate, normal rhythm, normal heart sounds. Absent: systolic murmur, diastolic murmur, rubs, gallop, clicks Right Hand Wrist exam: Present: tenderness, swelling. Absent: full ROM (Secondary to pain and swelling), abrasion, laceration, ecchymosis, dislocation Neuro motor exam: Present: wrist extension intact, fingers 2-5 abduction intact Vascular: Present: radial pulse. Absent: vascular compromise Neurological exam: Present: alert, oriented X3, CN II-XII intact Psychiatric exam: Present: normal affect, normal mood Skin exam: Present: warm, dry, intact, normal color. Absent: rash Course Vital Signs 12/11/21 12/11/21 11:21 13:48 Temperature 98.4 F 98.5 F Pulse Rate 95 97 Respiratory 16 18 Rate Blood Pressure 141/75 129/85 O2 Sat by Pulse 97 97 Oximetry Medical Decision Making - Medical Decision Making Patient is a 61-year-old female presenting with chief complaint of right hand pain. Patient injured her hand after a fall yesterday, where she also hit her face. Denies any loss of consciousness or use of blood thinners. Patient is to swelling and tenderness of the right hand as well. An examination there is limited range of motion secondary to pain and swelling, full sensation and radial pulses palpated. There are no neurological deficits on exam. X-ray shows no acute fracture or dislocation, CT of the brain and cervical spine shows no acute intracranial process or fracture of the cervical spine. Patient was provided with Roney wrap and ice pack. Educated her on supportive treatment. Follow-up with PCP on Monday. Report back to ER if any worsening symptoms. Educated them on return parameters and alarm symptoms. Patient conveyed verbal understanding and agreed to plan. Disposition Clinical Impression: Hand injury Disposition: HOME SELF-CARE Condition: Good Instructions (If sedation given, give patient instructions): Fall Prevention for Older Adults (ED), Head Injury (ED), Hand Sprain (ED) Additional Instructions: Use Motrin, Tylenol, ice, Roney wrap for symptomatic management. Follow-up with PCP in one to 2 days. Report back to ER if any worsening symptoms. Is patient prescribed a controlled substance at d/c from ED?: No Referrals: Flora Adams MD [Primary Care Provider] - 1-2 days Time of Disposition: 13:34
[2021-12-11 13:50] VITALS: BP 129/85; PULSE 97; RESP 18; TEMP 98.5
== END 2021-12-11 13:52 | disposition home or self-care (01) ==
LOC: EC 11:17
DX: S60.921A Unspecified superficial injury of right hand, initial encounter (principal); E11.9 Type 2 diabetes mellitus without complications; W01.0XXA Fall on same level from slipping, tripping and stumbling without subsequent striking against object, initial encounter
CPT/HCPCS: 70450; 72125; 99284

== ENCOUNTER → 2023-08-29 | Outpatient (CLI) | payer MEDICARE, OTHER ==
--- NOTE | 2023-08-30 09:25 | MM ---
Reason for Exam: Screening (asymptomatic). Last mammogram was performed 1 year(s) and 9 month(s) ago. Patient History: Menarche at age 15. Patient has no children. Left ovary removed at age 42. Right ovary removed at age 42. Hysterectomy at age 42. Postmenopausal. Risk Values: Grace 5 year model risk: 1.6%. NCI Lifetime model risk: 7.9%. Prior Study Comparison: 09/06/2019 Bilateral Screening Mammogram, [facility]. 10/23/2020 Bilateral Screening Mammogram, [facility]. 11/25/2021 Bilateral Screening Mammogram, [facility]. Tissue Density: The breast tissue is heterogeneously dense. This may lower the sensitivity of mammography. Findings: Analyzed By CAD. There is no suspicious group of microcalcifications or new suspicious mass. Benign-appearing calcifications bilaterally. Overall Assessment: Benign, BI-RAD 2 Management: Screening Mammogram of both breasts in [address] [facility] will attempt to contact patient to return for supplemental views and ultrasound if indicated. Patient should continue monthly self-breast exams. A clinical breast exam by your physician is recommended on an annual basis. This exam should not preclude additional follow-up of suspicious palpable abnormalities. Note on Grace scores and lifetime risk: 1. A Grace score greater than 3% is considered moderate risk. If this is the case, consider specialist referral to assess eligibility for a risk reducing agent. 2. If overall lifetime risk for the development of breast cancer is 20% or higher, the patient may qualify for future screening with alternating mammogram and breast MRI. Electronically signed and approved by: Myke Renner DO
== END | disposition home or self-care (01) ==
LOC: RADMAMWWP 07:57
PROVIDERS: ATTEND Family Medicine
DX: Z12.31 Encounter for screening mammogram for malignant neoplasm of breast (principal); Z78.0 Asymptomatic menopausal state
CPT/HCPCS: 77063; 77067

== ENCOUNTER 2023-09-18 20:51 | Emergency (ER) | payer MEDICARE, OTHER ==
[2023-09-18 21:19] VITALS: BP 146/75; RESP 18; TEMP 98.5
[2023-09-18 23:17] LABS: Basophils % (A) 0 %; Eosinophils % (A) 0 %; HGB 11.3 gm/dL (11.4-16.0); Lymphocytes # (A) 0.5 k/uL (1.0-4.8); Lymphocytes % (A) 10 %; MCH 27.4 pg (25.0-35.0); MCHC 32.2 g/dL (31.0-37.0); MCV 85.2 fL (80.0-100.0); Mean Platelet Volume 7.4; Monocytes # (A) 0.4 k/uL (0-1.0); Monocytes % (A) 9 %; Neutrophils # (A) 3.5 k/uL (1.3-7.7); Neutrophils % (A) 77 %; Platelet Count 128 k/uL (150-450); RBC 4.11 m/uL (3.80-5.40); RDW 13.4 % (11.5-15.5); WBC 4.5 k/uL (3.8-10.6)
[2023-09-18 23:29] LABS: Partial Thromboplastin Time 28.5 sec (22.0-30.0); Prothrombin Time 10.9 sec (10.0-12.5)
[2023-09-18 23:32] LABS: ALT 23 U/L (4-34); AST 32 U/L (14-36); African American GFR (CKD) >90 (>60 ml/min/1.73 sqM); Albumin 4.2 g/dL (3.5-5.0); Alkaline Phosphatase 53 U/L (38-126); Anion Gap 8 mmol/L; Blood Urea Nitrogen 16 mg/dL (7-17); Calcium 9.1 mg/dL (8.4-10.2); Carbon Dioxide 23 mmol/L (22-30); Chloride 98 mmol/L (98-107); Glucose 109 mg/dL (74-99); Magnesium 1.6 mg/dL (1.6-2.3); Non-African American GFR(CKD) >90 (>60 ml/min/1.73 sqM); Phosphorus 3.7 mg/dL (2.5-4.5); Potassium 4.3 mmol/L (3.5-5.1); Sodium 129 mmol/L (137-145); Total Bilirubin 0.4 mg/dL (0.2-1.3); Total Protein 6.8 g/dL (6.3-8.2)
[2023-09-19] MEDS: SODIUM CHLORIDE 0.9% 1,000 ML IV ONE (01:26)
--- NOTE | 2023-09-19 01:37 | ED ---
General Adult HPI - General Chief complaint: Fall Stated complaint: Weakness Time Seen by Provider: 09/19/23 01:08 Source: patient, family, RN notes reviewed, old records reviewed Mode of arrival: ambulatory Limitations: no limitations - History of Present Illness Initial comments: 63-year-old female presents from home with weakness, fatigue, and minor fall. No head injury. No significant pain complaints. Patient does not feel as though she was injured from the fall. She denied preceding chest pain. No abdominal pain. No vomiting. No fever. She has had a minor cough. - Related Data Home Medications Medication Instructions Recorded Confirmed Albuterol Inhaler [Ventolin Hfa 1 - 2 puff INHALATION RT-Q6H PRN 09/12/18 09/12/18 Inhaler] Atorvastatin Calcium [Lipitor] 10 mg PO HS 09/12/18 09/12/18 Hydrochlorothiazide 12.5mg Tab 12.5 mg PO DAILY 09/12/18 09/12/18 Linagliptin/Metformin HCl 1 tab PO BID 09/12/18 09/12/18 [Jentadueto 2.5 mg-850 mg Tab] Sertraline [Zoloft] 50 mg PO DAILY 09/12/18 09/12/18 glipiZIDE XL [Glucotrol Xl] 10 mg PO DAILY 09/12/18 09/12/18 Previous Rx's Medication Instructions Recorded Sulfamethox-Tmp 800-160Mg [Bactrim 1 each PO Q12HR #20 tab 09/13/18 DS 800-160 mg] Oseltamivir [Tamiflu] 75 mg PO Q12HR 5 Days #10 cap 09/19/23 Allergies Allergy/AdvReac Type Severity Reaction Status Date / Time No Known Allergies Allergy Verified 09/18/23 20:58 Review of Systems ROS Statement: Those systems with pertinent positive or pertinent negative responses have been documented in the HPI. ROS Other: All systems not noted in ROS Statement are negative. Past Medical History Past Medical History: Diabetes Mellitus Additional Past Medical History / Comment(s): autistic History of Any Multi-Drug Resistant Organisms: None Reported Past Surgical History: Hysterectomy, Orthopedic Surgery Additional Past Surgical History / Comment(s): jaw surgery Past Psychological History: Anxiety, Depression Smoking Status: Never smoker Past Alcohol Use History: None Reported Past Drug Use History: None Reported General Exam Limitations: no limitations General appearance: alert, in no apparent distress Head exam: Present: atraumatic, normocephalic Eye exam: Present: normal appearance ENT exam: Present: mucous membranes dry Neck exam: Present: normal inspection. Absent: tenderness, meningismus Respiratory exam: Present: rhonchi. Absent: respiratory distress, wheezes Cardiovascular Exam: Present: regular rate, normal rhythm GI/Abdominal exam: Present: soft. Absent: distended, tenderness, guarding Extremities exam: Present: normal inspection, normal capillary refill Neurological exam: Present: alert, oriented X3 Psychiatric exam: Present: normal affect, normal mood Skin exam: Present: warm, dry, intact Course Vital Signs 09/18/23 20:54 Temperature 98.5 F Pulse Rate 100 Respiratory 18 Rate Blood Pressure 146/75 O2 Sat by Pulse 97 Oximetry Medical Decision Making - Medical Decision Making Was pt. sent in by a medical professional or institution (Dr. PA, [facility] [employer] [facility], urgent care, hospital, or [facility]...) When possible be specific @ -No Did you speak to anyone other than the patient for history (EMS, parent, family, police, friend...)? What history was obtained from this source @ -No Did you review nursing and triage notes (agree or disagree)? Why? @ -I reviewed and agree with nursing and triage notes Were old charts reviewed (outside hosp., previous admission, EMS record, old EKG, old radiological studies, urgent care reports/EKG's, [facility] records)? Report findings @ -No old charts were reviewed Differential Diagnosis (chest pain, altered mental status, abdominal pain women, abdominal pain men, vaginal bleeding, weakness, fever, dyspnea, syncope, headache, dizziness, GI bleed, back pain, seizure, CVA, palpatations, mental health, musculoskeletal)? @ -Differential Weakness: Hypoglycemia, shock, sepsis, hyponatremia, anemia, infection, OH, ETOH, adverse medicine reaction, overdose, stroke, this is not meant to be an all-inclusive list. EKG interpreted by me (3pts min.). @ -Sinus rhythm short MD, right atrial enlargement, rate of 88, MD interval 114, QRS duration 91, QTc [address] segment elevation. X-rays interpreted by me (1pt min.). @ -[Chest x-ray negative for acute cardiopulmonary findings, negative pelvic x- ray CT interpreted by me (1pt min.). @ -None done U/S interpreted by me (1pt. min.). @ -None done What testing was considered but not performed or refused? (CT, X-rays, U/S, labs)? Why? @ -None What meds were considered but not given or refused? Why? @ -None Did you discuss the management of the patient with other professionals (professionals i.e. Dr., PA, [employer], lab, RT, psych nurse, rn social services, agent broker, teacher, border patrol officer, director of casework services)? Give summary @ -No Was smoking cessation discussed for >3mins.? @ -No Was critical care preformed (if so, how long)? @ -No Were there social determinants of health that impacted care today? How? (Homelessness, low income, unemployed, alcoholism, drug addiction, transportation, low edu. Level, literacy, decrease access to med. care, [facility], rehab)? @ -No Was there de-escalation of care discussed even if they declined (Discuss DNR or withdrawal of care, Hospice)? DNR status @ -No What co-morbidities impacted this encounter? (DM, HTN, Smoking, COPD, CAD, Cancer, CVA, ARF, Chemo, Hep., AIDS, mental health diagnosis, sleep apnea, morbid obesity)? @ -None Was patient admitted / discharged? Hospital course, mention meds given and route, prescriptions, significant lab abnormalities, going to OR and other p ertinent info. @ -63-year-old female with weakness and cough, minor fall without injury. Workup reveals mild hyponatremia which is treated with normal saline. X-rays are negative for both traumatic injury or pneumonia on chest x-ray. Patient does test positive for influenza which explains her weakness. She is otherwise well-appearing and stable for discharge. Prescribed Tamiflu. Undiagnosed new problem with uncertain prognosis? @ -No Drug Therapy requiring intensive monitoring for toxicity (Heparin, Nitro, Insulin, Cardizem)? @ -No Were any procedures done? @ -No Diagnosis/symptom? @ -Influenza, weakness Acute, or Chronic, or Acute on Chronic? @ -[Acute Uncomplicated (without systemic symptoms) or Complicated (systemic symptoms)? @ -Default Side effects of treatment? @ -No Exacerbation, Progression, or Severe Exacerbation? @ -No Poses a threat to life or bodily function? How? (Chest pain, [place], OH, pneumonia, PE, COPD, DKA, ARF, appy, cholecystitis, CVA, Diverticulitis, Homicidal, Suicidal, threat to staff... and all critical care pts) @ -Low risk at this time - Lab Data Result diagrams: 09/18/23 22:48 09/18/23 23:03 Lab Results 09/18/23 09/18/23 09/18/23 Range/Units 22:48 23:03 23:03 WBC 4.5 (3.8-10.6) k/uL RBC 4.11 (3.80-5.40) m/uL Hgb 11.3 L (11.4-16.0) gm/dL Hct 35.0 (34.0-46.0) % MCV 85.2 (80.0-100.0) fL MCH 27.4 (25.0-35.0) pg MCHC 32.2 (31.0-37.0) g/dL RDW 13.4 (11.5-15.5) % Plt Count 128 L (150-450) k/uL MPV 7.4 Neutrophils % 77 % Lymphocytes % 10 % Monocytes % 9 % Eosinophils % 0 % Basophils % 0 % Neutrophils # 3.5 (1.3-7.7) k/uL Lymphocytes # 0.5 L (1.0-4.8) k/uL Monocytes # 0.4 (0-1.0) k/uL Eosinophils # 0.0 (0-0.7) k/uL Basophils # 0.0 (0-0.2) k/uL PT 10.9 (10.0-12.5) sec INR 1.0 (<1.2) APTT 28.5 (22.0-30.0) sec Sodium 129 L (137-145) mmol/L Potassium 4.3 (3.5-5.1) mmol/L Chloride 98 (98-107) mmol/L Carbon Dioxide 23 (22-30) mmol/L Anion Gap 8 mmol/L BUN 16 (7-17) mg/dL Creatinine 0.50 L (0.52-1.04) mg/dL Est GFR (CKD-EPI)AfAm >90 (>60 ml/min/1.73 sqM) Est GFR (CKD-EPI)NonAf >90 (>60 ml/min/1.73 sqM) Glucose 109 H (74-99) mg/dL Calcium 9.1 (8.4-10.2) mg/dL Phosphorus 3.7 (2.5-4.5) mg/dL Magnesium 1.6 (1.6-2.3) mg/dL Total Bilirubin 0.4 (0.2-1.3) mg/dL AST 32 (14-36) U/L ALT 23 (4-34) U/L Alkaline Phosphatase 53 (38-126) U/L Troponin I (0.000-0.034) ng/mL Total Protein 6.8 (6.3-8.2) g/dL Albumin 4.2 (3.5-5.0) g/dL Urine Color Urine Appearance (Clear) Urine pH (5.0-8.0) Ur Specific [place] (1.001-1.035) Urine Protein (Negative) Urine Glucose (UA) (Negative) Urine Ketones (Negative) Urine Blood (Negative) Urine Nitrite (Negative) Urine Bilirubin (Negative) Urine Urobilinogen (<2.0) mg/dL Ur Leukocyte Esterase (Negative) Influenza Type A (PCR) (Not Detectd) Influenza Type B (PCR) (Not Detectd) RSV (PCR) (Not Detectd) SARS-CoV-2 (PCR) (Not Detectd) 09/18/23 09/19/23 09/19/23 Range/Units 23:03 00:00 01:26 WBC (3.8-10.6) k/uL RBC (3.80-5.40) m/uL Hgb (11.4-16.0) gm/dL Hct (34.0-46.0) % MCV (80.0-100.0) fL MCH (25.0-35.0) pg MCHC (31.0-37.0) g/dL RDW (11.5-15.5) % Plt Count (150-450) k/uL MPV Neutrophils % % Lymphocytes % % Monocytes % % Eosinophils % % Basophils % % Neutrophils # (1.3-7.7) k/uL Lymphocytes # (1.0-4.8) k/uL Monocytes # (0-1.0) k/uL Eosinophils # (0-0.7) k/uL Basophils # (0-0.2) k/uL PT (10.0-12.5) sec INR (<1.2) APTT (22.0-30.0) sec Sodium (137-145) mmol/L Potassium (3.5-5.1) mmol/L Chloride (98-107) mmol/L Carbon Dioxide (22-30) mmol/L Anion Gap mmol/L BUN (7-17) mg/dL Creatinine (0.52-1.04) mg/dL Est GFR (CKD-EPI)AfAm (>60 ml/min/1.73 sqM) Est GFR (CKD-EPI)NonAf (>60 ml/min/1.73 sqM) Glucose (74-99) mg/dL Calcium (8.4-10.2) mg/dL Phosphorus (2.5-4.5) mg/dL Magnesium (1.6-2.3) mg/dL Total Bilirubin (0.2-1.3) mg/dL AST (14-36) U/L ALT (4-34) U/L Alkaline Phosphatase (38-126) U/L Troponin I <0.012 (0.000-0.034) ng/mL Total Protein (6.3-8.2) g/dL Albumin (3.5-5.0) g/dL Urine Color Light Yellow Urine Appearance Clear (Clear) Urine pH 5.5 (5.0-8.0) Ur Specific [place] 1.017 (1.001-1.035) Urine Protein Negative (Negative) Urine Glucose (UA) 2+ H (Negative) Urine Ketones Negative (Negative) Urine Blood Negative (Negative) Urine Nitrite Negative (Negative) Urine Bilirubin Negative (Negative) Urine Urobilinogen <2.0 (<2.0) mg/dL Ur Leukocyte Esterase Negative (Negative) Influenza Type A (PCR) Detected A (Not Detectd) Influenza Type B (PCR) Not Detected (Not Detectd) RSV (PCR) Not Detected (Not Detectd) SARS-CoV-2 (PCR) Not Detected (Not Detectd) Disposition Clinical Impression: Influenza A Disposition: HOME SELF-CARE Condition: Good Instructions (If sedation given, give patient instructions): Fall Prevention for Older Adults (ED), Influenza (ED) Prescriptions: Oseltamivir [Tamiflu] 75 mg PO Q12HR 5 Days #10 cap Is patient prescribed a controlled substance at d/c from ED?: No Referrals: Robert Jordan MD [Primary Care Provider] - 1-2 days
[2023-09-19 01:42] LABS: Appearance,Urine Clear (Clear); Bilirubin,Urine Negative (Negative); Blood,Urine Negative (Negative); Color,Urine Light Yellow; Glucose,Urine (UA) 2+ (Negative); Ketones,Urine Negative (Negative); Leukocyte Esterase,Urine Negative (Negative); Nitrite,Urine Negative (Negative); PH, Urine 5.5 (5.0-8.0); Protein,Urine Negative (Negative); Specific Gravity,Urine 1.017 (1.001-1.035); Urobilinogen,Urine <2.0 mg/dL (<2.0)
--- NOTE | 2023-09-19 01:52 | XR ---
EXAMINATION TYPE: XR chest 2V DATE OF EXAM: 09/19/2023 COMPARISON: Chest x-ray September 12, 2018 HISTORY: Fall injury with pain TECHNIQUE: Frontal and lateral views of the chest are obtained. FINDINGS: There is no suspicious focal air space opacity, pleural effusion, or pneumothorax seen. T he cardiac silhouette size remain within normal limits. Scoliosis is present. IMPRESSION: No acute cardiopulmonary process.
--- NOTE | 2023-09-19 01:53 | XR ---
EXAMINATION TYPE: XR pelvis AP view DATE OF EXAM: 09/19/2023 CLINICAL HISTORY: Fall with pain TECHNIQUE: A single AP view of the pelvis is obtained. COMPARISON: None. FINDINGS: Slightly suboptimal due to lucency from overlying bowel gas. There is no acute displaced f racture evident in the pelvis. Cnpe-au-edvnjgyi axial joint space loss in both hips. And sacroiliac j oints are preserved. Pubic symphysis is intact. Single left-sided pelvic phlebolith is seen. IMPRESSION: There is no acute displaced fracture in the pelvis.
[2023-09-19 03:03] VITALS: PULSE 90
== END 2023-09-19 02:45 | disposition home or self-care (01) ==
LOC: EC 20:51
DX: J10.1 Influenza due to other identified influenza virus with other respiratory manifestations (principal); E11.9 Type 2 diabetes mellitus without complications; F41.9 Anxiety disorder, unspecified; F32.A Depression, unspecified; Z79.899 Other long term (current) drug therapy; Z79.84 Long term (current) use of oral hypoglycemic drugs; Z20.822 Contact with and (suspected) exposure to COVID-19
CPT/HCPCS: 36415; 71046; 72170; 80053; 81003; 83735; 84100; 84484; 85025; 85610; 85730; 87636; 93005; 96360; 99285

== ENCOUNTER 2024-05-27 08:57 | Inpatient (IN) | payer MEDICARE, OTHER ==
[~2024-05-27 08:57] MED LIST: HYDROmorphone 0.5 MG/0.5 ML SYRINGE IVP PRN
[2024-05-27] MEDS: IV FLUID CONTINUATION 1,000 ML IV ONE (09:40)
[2024-05-27 10:01] LABS: Glucose,Whole Blood 156 mg/dL (70-110)
[2024-05-27 10:12] LABS: Basophils % (A) 0 %; Eosinophils # (A) 0.1 k/uL (0-0.7); Eosinophils % (A) 1 %; HCT 38.8 % (34.0-46.0); HGB 12.4 gm/dL (11.4-16.0); Lymphocytes # (A) 1.7 k/uL (1.0-4.8); Lymphocytes % (A) 20 %; MCH 27.8 pg (25.0-35.0); MCHC 32.1 g/dL (31.0-37.0); MCV 86.9 fL (80.0-100.0); Mean Platelet Volume 6.6; Monocytes # (A) 0.4 k/uL (0-1.0); Monocytes % (A) 5 %; Neutrophils % (A) 71 %; Platelet Count 267 k/uL (150-450); RBC 4.47 m/uL (3.80-5.40); RDW 13.3 % (11.5-15.5); WBC 8.4 k/uL (3.8-10.6)
[2024-05-27] MEDS: DEXAMETHASONE SOD PHOSPHATE 4 MG/ML 1 ML VIAL IV ONE (10:13)
[2024-05-27] MEDS: LACTATED RINGERS 1,000 ML IV SCH (10:13)
[2024-05-27] MEDS: ONDANSETRON 4 MG/2 ML VIAL IVP ONE (10:13)
[2024-05-27 10:29] LABS: ALT 21 U/L (4-34); African American GFR (CKD) >90 (>60 ml/min/1.73 sqM); Albumin 4.3 g/dL (3.5-5.0); Anion Gap 6 mmol/L; Blood Urea Nitrogen 14 mg/dL (7-17); Calcium 9.2 mg/dL (8.4-10.2); Carbon Dioxide 28 mmol/L (22-30); Chloride 98 mmol/L (98-107); Glucose 158 mg/dL (74-99); Non-African American GFR(CKD) >90 (>60 ml/min/1.73 sqM); Sodium 132 mmol/L (137-145); Total Bilirubin 0.6 mg/dL (0.2-1.3); Total Protein 7.4 g/dL (6.3-8.2)
[2024-05-27 10:34] LABS: AST 31 U/L (14-36); Alkaline Phosphatase 78 U/L (38-126); Potassium 4.8 mmol/L (3.5-5.1)
[2024-05-27] MEDS: MIDAZOLAM 2 MG/2 ML VIAL IV ONE (10:40)
[2024-05-27] MEDS ORDERED: ROPIVACAINE 5 MG/ML 30 ML VIAL ONE (11:24)
[2024-05-27] MEDS ORDERED: DEXAMETHASONE SOD PHOSPHATE 4 MG/ML 1 ML VIAL ONE (11:24)
[2024-05-27] MEDS ORDERED: PROPOFOL 10 MG/ML 20 ML VIAL IV ONE (11:24)
[2024-05-27] MEDS ORDERED: MIDAZOLAM 2 MG/2 ML VIAL ONE (11:24)
[2024-05-27] MEDS ORDERED: SODIUM CHLORIDE 0.9% (PF) 10 ML VIAL ONE (11:24)
[2024-05-27] MEDS ORDERED: PHENYLEPHRINE 10 MG/ML VIAL ONE (11:24)
[2024-05-27] MEDS: ceFAZolin 1,000 MG in SODIUM CHLORIDE 0.9% 1,000 ML IRRIGATION ONE (12:05)
--- NOTE | 2024-05-27 12:45 | XR ---
EXAMINATION TYPE: XR ankle complete RT DATE OF EXAM: 05/27/2024 COMPARISON: NONE HISTORY: Pain FINDINGS: Five views of the ankle demonstrate postsurgical change of the distal fibula and tibia. Ankle mortise is symmetric. IMPRESSION: 1. Operative change. [facility] Radha Bowers, , 05/27/2024 12:43 PM
--- NOTE | 2024-05-27 12:45 | FL ---
EXAMINATION TYPE: FL guidance operating room DATE OF EXAM: 05/27/2024 HISTORY: Fluoroscopy time Total dose area product (DAP) in uGy*m?, mGy*cm? (or similar): 0.80436 IMPRESSION: 1. Fluoroscopy time. [facility], , 05/27/2024 12:43 PM
[2024-05-27] MEDS ORDERED: MORPHINE SULFATE 4 MG/ML SYRINGE IVP PRN (12:51)
[2024-05-27 13:07] LABS: Glucose,Whole Blood 167 mg/dL (70-110)
--- NOTE | 2024-05-27 14:38 | P.OP ---
Date of Procedure: 05/27/24 Preoperative Diagnosis: displaced bimalleolar fracture right ankle Postoperative Diagnosis: same Procedure(s) Performed: open reduction with internal fixation right bimalleolar ankle fracture Implants: Arthrex fibular lock nail with 3.0 mm cancellous screws 2 Arthrex 4.0 mm partially threaded cannulated screws 2 Anesthesia: HUYA Surgeon: Shane Nielson Estimated Blood Loss (ml): 3 Pathology: none sent Condition: stable Disposition: PACU Description of Procedure: Prior to the patient being brought to the operating room, anesthesia administered a nerve block on the operative lower extremity. The patient was brought into the operative room and placed on table in supine position. Timeout was taken to confirm correct patient identifiers, correct laterality of surgery, and correct procedure. Once all staff in the room were in agreement with the t imeout, the patient was induced and placed under general anesthesia. A well- padded tourniquet was placed on the operative thigh and a wedge under the hip hip to internally rotate the operative leg. The leg was then prepped and draped in usual manner. The leg was exsanguinated with an Esmarch bandage and then the tourniquet was inflated to 250 mmHg. Attention was directed over the lateral malleolus, where fluoroscopy was used to rylan the distal tip of the lateral malleolus on the AP view and the long access of the fibula on the lateral view. Skin drake were placed for incision planning as well as the trajectory of the guidewire. A small incision was made distal to the tip of the lateral malleolus. It was bluntly dissected down to the subcutaneous layer. A guidewire was then inserted at the distal tip of the lateral malleolus. It was then advanced into the shaft of the fibula, using the AP and lateral views under fluoroscopy to make sure the trajectory was acceptable. fracture alignment was also checked and noted to be near anatomic. Once wire was in place the large reamer was inserted and reamed down to proper depth. The small reamer was inserted next and reamed down to proper depth. The appropriately sized Arthrex Fibulock nail was placed on the jig and then inserted into the drill hole in the distal tip of the fibula and impacted down to proper depth. Fluoroscopy confirmed the proper position of the nail on the AP and lateral views. A screwdriver was inserted at the distal end of the jig and was used to turn the screw and deployed the proximal talons. Fluoroscopy confirmed that they were deployed. Drill guides were placed in the lateral aspect of the jig for the distal locking screws. Small stab incisions were made at the entry point of the screws. The drill sleeves were inserted through the jig and brought directly down to the bone. Drilling was done under fluoroscopy so that the lateral gutter wasn't breached. 3.0 mm cancellus screws were inserted through the drill guides and advanced until the heads engaged the lateral cortex of the fibula. There was good purchase of both screws in the bone. Fluoroscopy confirmed the proper positioning of the screws as well as maintain alignment of the fracture. Then attention was directed to the medial malleolar fracture. A bone clamp was used to reduce and hold the fracture in place. Fluoroscopy confirmed anatomic alignment of the fragment. A guidewire for a 4.0 mm screw was placed at the distal tip of the medial malleolus and advanced across the fracture and into the tibia. Fluoroscopic imaging confirmed the proper placement of the wire on the AP and lateral views. Drilling was performed over the wire. A 4.0 cannulated screw was inserted over the wire and advanced until the head engaged the bone of the medial malleolus and compressed the fracture. Fluoroscopic imaging showed proper alignment of the fracture fragment as well as proper placement of the screw. Live stress testing was done and showed no abnormal movement of the syndesmosis or any gapping of the medial or lateral gutters. The wounds were then thoroughly irrigated with antibiotic saline. Subcu closure was done with 4-0 Monocryl. Skin closure was done with delores. An Arthrex jumpstart dressing was placed over the incisions and then a bulky dry dressing applied to the right ankle. The tourniquet was released and capillary refill return to all digits on the right foot. The right leg was then placed in a below-knee fracture boot ankle neutral position. Anesthesia was reversed and the patient was taken r ecovery with vital signs stable.
[2024-05-27] MEDS ORDERED: DEXTROSE 50% SYRINGE 50 ML IVP PRN ×2 (15:08)
--- NOTE | 2024-05-27 16:51 | P.ANPRN ---
Procedure Note - Anesthesia - Nerve Block Performed Right Adductor Canal Single Time Out Performed: Yes (1039) Date of Procedure: 05/27/24 Location of Patient: OB (right ankle) Indication: Acute Post-Operative Pain, Dx/Pain Location, Requested by Surgeon Specifically requested for management of pain by DrDae: Shane Nielson Sedation Type: Sedate with meaningful contact maintained Preparation: Sterile Prep Position: Supine Needle Types: Pajunk Needle Gauge: 21 Ultrasound used to visualize needle placement: Yes Ultrasound used to observe medication spread: Yes Injectate: 0.5% Ropivacaine (see comment for volume) (20 cc + 4mg of decadron) Blood Aspirated: No Pain Paresthesia on Injection Noted: No Resistance on Injection: Normal Image Stored and Saved: Yes Events: Uneventful and Well Tolerated Right Other (see comment) Single Time Out Performed: Yes Date of Procedure: 05/27/24 Location of Patient: PreOp Indication: Acute Post-Operative Pain, Dx/Pain Location, Requested by Surgeon Specifically requested for management of pain by DrDae: Shane Nielson Sedation Type: Sedate with meaningful contact maintained Preparation: Sterile Prep Position: Left Lateral Catheter: None Needle Types: Pajunk Needle Gauge: 21 Ultrasound used to visualize needle placement: Yes Ultrasound used to observe medication spread: Yes Injectate: 0.5% Ropivacaine (see comment for volume) (20 cc + 4mg of decadron) Blood Aspirated: No Pain Paresthesia on Injection Noted: No Resistance on Injection: Normal Image Stored and Saved: Yes Events: Uneventful and Well Tolerated
[2024-05-27 17:01] LABS: Glucose,Whole Blood 210 mg/dL (70-110)
[2024-05-27] MEDS: INSULIN ASPART (NovoLOG) 100 UNIT/ML VIAL SQ SCH (17:27)
--- NOTE | 2024-05-27 17:27 | P.HPIM ---
History of Present Illness H&P Date: 05/27/24 64 year old F with PMH of HTN, DM, HLD, Depression presents to [facility] for elective surgery. She underwent open reduction with internal fixation right bimalleolar ankle fracture with Dr. Nielson. [facility] consulted for medical management of this patient. Patient reports well controlled pain. She is hungry. Has not voided yet. No other complaints. CBC and CMP significant for Na 32, Cr 0.45, glu 158. General: non toxic, no distress, appears at stated age Derm: warm, dry Head: atraumatic, normocephalic, symmetric Eyes: EOMI, no lid lag, anicteric sclera Mouth: no lip lesion, mucus membranes moist Cardiovascular: S1S2 reg, no murmur Lungs: Decreased BS bilaterally, no rhonchi, no rales , no accessory muscle use Neuro: no focal neuro deficits Psych: Alert, oriented, appropriate affect Based on my assessment of this patient, this patient meets a high complexity level of care. HTN: Lisinopril 10 mg PO QD. HCTZ 12.5 mg PO QD. DM: ISS ACHS. Accuchecks ACHS. Hypoglycemic precautions. HLD: Lipitor 10 mg PO QHS. Depression: Sertraline 50 mg PO QD. CODE STATUS: FULL CODE. DVT Prophylaxis: ASA GI Prophylaxis: Designated medical POA if patient is not able to make medical decisions for themselves: Guardian I have reviewed the following healthcare network consultant notes: Operative note. I have reviewed the results of the following tests: As above. I have ordered the following tests: As above. I have discussed the care of this patient with the following independent historian: MITCH. I have independently interpreted the following test below: I have discussed the management of this patient with the following physician: Past Medical History Past Medical History: Diabetes Mellitus, Hyperlipidemia, Hypertension Additional Past Medical History / Comment(s): autistic, high functioning able to cook but makes poor decsions History of Any Multi-Drug Resistant Organisms: None Reported Past Surgical History: Hysterectomy, Orthopedic Surgery Additional Past Surgical History / Comment(s): jaw surgery 100 stitches to head after dog bite as a younger person Past Anesthesia/Blood Transfusion Reactions: No Reported Reaction Smoking Status: Former smoker - Past Family History Father History Unknown: Yes Medications and Allergies Home Medications Medication Instructions Recorded Confirmed Type Atorvastatin Calcium [Lipitor] 10 mg PO HS 09/12/18 05/27/24 History Hydrochlorothiazide 12.5mg Tab 12.5 mg PO DAILY 09/12/18 05/27/24 History Linagliptin/Metformin HCl 1 tab PO BID 09/12/18 05/27/24 History [Jentadueto 2.5 mg-850 mg Tab] Sertraline [Zoloft] 50 mg PO DAILY 09/12/18 05/27/24 History glipiZIDE XL [Glucotrol Xl] 10 mg PO DAILY 09/12/18 05/27/24 History Acetaminophen Tab [Tylenol] 650 mg PO Q6H PRN 05/23/24 05/27/24 History Cranberry (Unk) 1 tab PO DAILY 05/23/24 05/27/24 History Multivitamins, Thera [Multivitamin 1 tab PO DAILY 05/23/24 05/27/24 History (formulary)] lisinopriL [Prinivil] 10 mg PO DAILY 05/23/24 05/27/24 History Allergies Allergy/AdvReac Type Severity Reaction Status Date / Time No Known Allergies Allergy Verified 05/27/24 09:47 Physical Exam Vitals: Vital Signs Temp Pulse Resp BP Pulse Ox 05/27/24 16:12 95 122/75 97 05/27/24 15:57 92 138/77 97 05/27/24 15:42 90 125/82 95 05/27/24 15:28 90 120/70 96 05/27/24 15:12 98.3 F 63 17 145/77 98 05/27/24 14:44 83 16 115/69 97 05/27/24 14:29 82 16 114/61 97 05/27/24 14:14 14 119/64 97 05/27/24 13:59 83 16 119/60 97 05/27/24 13:44 85 16 117/59 95 05/27/24 13:29 87 16 123/58 95 05/27/24 13:14 90 16 114/58 96 05/27/24 12:59 85 16 116/59 95 05/27/24 12:44 97 12 113/55 95 05/27/24 11:00 83 16 120/56 99 05/27/24 09:44 97.3 F L 99 16 168/77 99 Intake and Output 1105/27/24 05/27/24 06:59 14:59 22:59 Intake Total 851 Output Total 3 Balance 848 Intake: IV 851 Output: Estimated Blood Loss 3 Other: Weight 48.1 kg Results CBC & Chem 7: 05/27/24 10:05 05/27/24 10:05 Labs: Abnormal Lab Results - Last 24 Hours (Table) 05/27/24 05/27/24 05/27/24 Range/Units 09:51 10:05 13:05 Sodium 132 L (137-145) mmol/L Creatinine 0.45 L (0.52-1.04) mg/dL Glucose 158 H (74-99) mg/dL POC Glucose (mg/dL) 156 H 167 H (70-110) mg/dL 05/27/24 Range/Units 16:59 Sodium (137-145) mmol/L Creatinine (0.52-1.04) mg/dL Glucose (74-99) mg/dL POC Glucose (mg/dL) 210 H (70-110) mg/dL Thrombosis Risk Factor Assmnt - Choose All That Apply Each Factor Represents 1 point: Medical pt on bed rest Each Risk Factor Represents 2 Points: Age 61-74 years Each Risk Factor Represents 5 Points: Hip, pelvis, or leg fracture (< 1 month) Thrombosis Risk Factor Assessment Total Risk Factor Score: 8 Thrombosis Risk Factor Assessment Level: High Risk
[2024-05-27 20:32] LABS: Glucose,Whole Blood 367 mg/dL (70-110)
[2024-05-27] MEDS: ATORVASTATIN 10 MG TAB PO SCH (21:21)
[2024-05-28 07:14] LABS: Glucose,Whole Blood 168 mg/dL (70-110)
[2024-05-28] MEDS: ASPIRIN 325 MG TAB PO SCH (08:32)
[2024-05-28] MEDS: SERTRALINE 50 MG TAB PO SCH (08:32)
[2024-05-28] MEDS: hydroCHLOROthiazide 12.5 MG CAP PO SCH (08:33)
[2024-05-28] MEDS: lisinopriL 10 MG TAB PO SCH (08:33)
[2024-05-28] MEDS: HYDROcodone/APAP 7.5-325MG 1 EACH TAB PO PRN (08:37)
[2024-05-28 11:55] LABS: HCT 34.5 % (34.0-46.0); HGB 11.2 gm/dL (11.4-16.0); Hypochromasia Slight; MCH 28.2 pg (25.0-35.0); MCHC 32.5 g/dL (31.0-37.0); MCV 86.9 fL (80.0-100.0); Mean Platelet Volume 6.8; Platelet Count 276 k/uL (150-450); RBC 3.97 m/uL (3.80-5.40); RDW 13.5 % (11.5-15.5); WBC 14.6 k/uL (3.8-10.6)
[2024-05-28 12:12] LABS: Glucose,Whole Blood 154 mg/dL (70-110)
[2024-05-28 13:38] VITALS: RESP 16
[2024-05-28 13:44] VITALS: BMI 16.6
[2024-05-28 17:05] LABS: Glucose,Whole Blood 311 mg/dL (70-110)
--- NOTE | 2024-05-28 17:06 | P.PN ---
Subjective Progress Note Date: 05/28/24 64 year old F with PMH of HTN, DM, HLD, Depression presents to [facility] for elective surgery. She underwent open reduction with internal fixation right bimalleolar ankle fracture with Dr. Nielson. [facility] consulted for medical management of this patient. 05/28 Patient reports well controlled pain. No other complaints. CBC significant for WBC 14.6, Hg 11.2. General: non toxic, no distress, appears at stated age Derm: warm, dry Head: atraumatic, normocephalic, symmetric Eyes: EOMI, no lid lag, anicteric sclera Mouth: no lip lesion, mucus membranes moist Cardiovascular: S1S2 reg, no murmur Lungs: Decreased BS bilaterally, no rhonchi, no rales , no accessory muscle use Neuro: no focal neuro deficits Psych: Alert, oriented, appropriate affect Based on my assessment of this patient, this patient meets a high complexity level of care. HTN: Lisinopril 10 mg PO QD. HCTZ 12.5 mg PO QD. DM: ISS ACHS. Accuchecks ACHS. Hypoglycemic precautions. HLD: Lipitor 10 mg PO QHS. Depression: Sertraline 50 mg PO QD. CODE STATUS: FULL CODE. DVT Prophylaxis: ASA GI Prophylaxis: Designated medical POA if patient is not able to make medical decisions for themselves: Guardian I have reviewed the following diet consultant notes: I have reviewed the results of the following tests: CBC I have ordered the following tests: I have discussed the care of this patient with the following independent historian: Case management. I have independently interpreted the following test below: I have discussed the management of this patient with the following physician: Objective - Vital Signs Vital signs: Vital Signs Temp 98.5 F 05/28/24 13:33 Pulse 100 05/28/24 13:33 Resp 16 05/28/24 13:33 BP 109/65 05/28/24 13:33 Pulse Ox 97 05/28/24 13:33 FiO2 Intake & Output 05/27/24 05/28/24 05/28/24 18:59 06:59 18:59 Intake Total 851 Output Total 3 Balance 848 Weight 48.1 kg 48.1 kg Intake: IV 851 Output: Estimated Blood Loss 3 Other: Voiding Method Diaper Bedpan Bedpan Diaper Diaper # Voids 1 2 1 - Labs CBC & Chem 7: 05/28/24 11:22 05/27/24 10:05 Labs: Abnormal Lab Results - Last 24 Hours (Table) 05/27/24 05/28/24 05/28/24 Range/Units 20:31 07:13 11:22 WBC 14.6 H (3.8-10.6) k/uL Hgb 11.2 L (11.4-16.0) gm/dL POC Glucose (mg/dL) 367 H 168 H (70-110) mg/dL 05/28/24 05/28/24 Range/Units 12:10 17:03 WBC (3.8-10.6) k/uL Hgb (11.4-16.0) gm/dL POC Glucose (mg/dL) 154 H 311 H (70-110) mg/dL
[2024-05-28 20:02] LABS: Glucose,Whole Blood 195 mg/dL (70-110)
[2024-05-29 07:26] LABS: Glucose,Whole Blood 174 mg/dL (70-110)
[2024-05-29 12:23] LABS: Glucose,Whole Blood 212 mg/dL (70-110)
--- NOTE | 2024-05-29 13:51 | P.PN ---
Subjective Progress Note Date: 05/29/24 64 year old F with PMH of HTN, DM, HLD, Depression presents to [facility] for elective surgery. She underwent open reduction with internal fixation right bimalleolar ankle fracture with Dr. Nielson. [facility] consulted for medical management of this patient. 05/29 Patient reports well controlled pain. No other complaints. No new labs done today. General: non toxic, no distress, appears at stated age Derm: warm, dry Head: atraumatic, normocephalic, symmetric Eyes: EOMI, no lid lag, anicteric sclera Mouth: no lip lesion, mucus membranes moist Cardiovascular: S1S2 reg, no murmur Lungs: Decreased BS bilaterally, no rhonchi, no rales , no accessory muscle use Neuro: no focal neuro deficits Psych: Alert, oriented, appropriate affect Based on my assessment of this patient, this patient meets a high complexity level of care. HTN: Lisinopril 10 mg PO QD. HCTZ 12.5 mg PO QD. DM: ISS ACHS. Accuchecks ACHS. Hypoglycemic precautions. HLD: Lipitor 10 mg PO QHS. Depression: Sertraline 50 mg PO QD. CODE STATUS: FULL CODE. DVT Prophylaxis: ASA GI Prophylaxis: Designated medical POA if patient is not able to make medical decisions for themselves: Guardian Discharge to SNF when bed available. I have reviewed the following international travel consultant notes: I have reviewed the results of the following tests: I have ordered the following tests: I have discussed the care of this patient with the following independent historian: Case management. I have independently interpreted the following test below: I have discussed the management of this patient with the following physician: Objective - Vital Signs Vital signs: Vital Signs Temp 98.6 F 05/29/24 01:29 Pulse 88 05/29/24 01:29 Resp 16 05/29/24 01:29 BP 121/70 05/29/24 01:29 Pulse Ox 96 05/29/24 01:29 FiO2 Intake & Output 05/28/24 05/29/24 05/29/24 18:59 06:59 18:59 Intake Total 898 Balance 898 Weight 48.1 kg Intake: Oral 898 Other: Voiding Method Bedpan Toilet Toilet Diaper Bedpan Bedpan Diaper Diaper # Voids 1 4 1 - Labs CBC & Chem 7: 05/28/24 11:22 05/27/24 10:05 Labs: Abnormal Lab Results - Last 24 Hours (Table) 05/28/24 05/28/24 05/28/24 Range/Units 11:22 12:10 17:03 WBC 14.6 H (3.8-10.6) k/uL Hgb 11.2 L (11.4-16.0) gm/dL POC Glucose (mg/dL) 154 H 311 H (70-110) mg/dL 05/28/24 05/29/24 Range/Units 20:01 07:24 WBC (3.8-10.6) k/uL Hgb (11.4-16.0) gm/dL POC Glucose (mg/dL) 195 H 174 H (70-110) mg/dL
[2024-05-29 17:00] LABS: Glucose,Whole Blood 373 mg/dL (70-110)
[2024-05-29 20:11] LABS: Glucose,Whole Blood 299 mg/dL (70-110)
[2024-05-30 08:06] LABS: Glucose,Whole Blood 213 mg/dL (70-110)
[2024-05-30 12:29] LABS: Glucose,Whole Blood 175 mg/dL (70-110)
[2024-05-30 13:06] VITALS: BP 107/65; PULSE 82; TEMP 98
--- NOTE | 2024-05-30 14:20 | P.DS ---
Providers Date of admission: 05/27/24 12:48 Expected date of discharge: 05/30/24 Attending physician: Lay Doty MD Consults: 05/27/24 12:54 Consult Physician Routine Consulting Provider: Rivera Ureña Consult Reason/Comments: admission for discharge to rehab Do you want consulting provider notified?: Yes Primary care physician: Robert Ibarra [facility] Course: 64 year old F with PMH of HTN, DM, HLD, Depression presents to [facility] for elective surgery. She underwent open reduction with internal fixation right bimalleolar ankle fracture with Dr. Nielson. [facility] consulted for medical management of this patient. 05/29 Patient reports well controlled pain. No other complaints. No new labs done today. 05/30 Patient was seen and examined. Well controlled pain. Urinating freely. Bowel movement today. Plans for discharge to SNF. Discharge Plan: Non weightbearing of right leg until further instructed by your orthopedic surgeon at follow-up appointment. General: non toxic, no distress, appears at stated age Derm: warm, dry Head: atraumatic, normocephalic, symmetric Eyes: EOMI, no lid lag, anicteric sclera Mouth: no lip lesion, mucus membranes moist Cardiovascular: S1S2 reg, no murmur Lungs: Decreased BS bilaterally, no rhonchi, no rales , no accessory muscle use Neuro: no focal neuro deficits Psych: Alert, oriented, appropriate affect Discharge Diagnosis: HTN DM HLD Depression Status post open reduction with internal fixation right bimalleolar ankle fracture with Dr. Nielson This complex discharge took 35 minutes to complete. Patient Condition at Discharge: Stable Plan - Discharge Summary Discharge Rx Participant: No New Discharge Prescriptions: New Aspirin 325 mg PO DAILY #30 tab HYDROcodone/APAP 7.5-325MG [Alleghany 7.5-325] 1 each PO QID PRN #12 tab PRN Reason: Pain Scale 1 To 5 Continue Sertraline [Zoloft] 50 mg PO DAILY Hydrochlorothiazide 12.5mg Tab 12.5 mg PO DAILY Atorvastatin Calcium [Lipitor] 10 mg PO HS glipiZIDE XL [Glucotrol XL] 10 mg PO DAILY Linagliptin/Metformin HCl [Jentadueto 2.5 mg-850 mg Tab] 1 tab PO BID Acetaminophen Tab [Tylenol] 650 mg PO Q6H PRN PRN Reason: Pain lisinopriL [Prinivil] 10 mg PO DAILY Cranberry (Unk) 1 tab PO DAILY Multivitamins, Thera [Multivitamin (formulary)] 1 tab PO DAILY Discharge Medication List Atorvastatin Calcium [Lipitor] 10 mg PO HS 09/12/18 [History] Hydrochlorothiazide 12.5mg Tab 12.5 mg PO DAILY 09/12/18 [History] Linagliptin/Metformin HCl [Jentadueto 2.5 mg-850 mg Tab] 1 tab PO BID 09/12/18 [History] Sertraline [Zoloft] 50 mg PO DAILY 09/12/18 [History] glipiZIDE XL [Glucotrol XL] 10 mg PO DAILY 09/12/18 [History] Acetaminophen Tab [Tylenol] 650 mg PO Q6H PRN 05/23/24 [History] Cranberry (Unk) 1 tab PO DAILY 05/23/24 [History] Multivitamins, Thera [Multivitamin (formulary)] 1 tab PO DAILY 05/23/24 [History] lisinopriL [Prinivil] 10 mg PO DAILY 05/23/24 [History] Aspirin 325 mg PO DAILY #30 tab 05/30/24 [Rx] HYDROcodone/APAP 7.5-325MG [Alleghany 7.5-325] 1 each PO QID PRN #12 tab 05/30/24 [Rx] Follow up Appointment(s)/Referral(s): Shane Nielson DPM [Doctor of Osteopathic Medicine] - 1 Week Activity/Diet/Wound Care/Special Instructions: Activity: None weightbearing of right leg until further instructed by your orthopedic surgeon at follow-up appointment. Diet: Heart healthy and carb consistent diet. Special Instructions: Take all of your medications as directed and remember to keep all of your doctor's appointments and follow-up as needed. Thank you for allowing us to participate in your care, it was truly a pleasure having you for our patient!!! Discharge Disposition: TRANSFER TO SNF/ECF
== END 2024-05-30 15:09 | DRG 494 ==
LOC: OR 08:57 → 5NMEDONC 12:48
PROVIDERS: ADMIT Internal Medicine; ATTEND Internal Medicine
PROC: 0QSJ04Z Reposition Right Fibula with Internal Fixation Device, Open Approach (ICD-10-PCS; 2024-05-27)
PROC: 0QSG04Z Reposition Right Tibia with Internal Fixation Device, Open Approach (ICD-10-PCS; principal; 2024-05-27 11:30)
DX: S82.841A Displaced bimalleolar fracture of right lower leg, initial encounter for closed fracture (principal); E11.9 Type 2 diabetes mellitus without complications; F32.A Depression, unspecified; I10 Essential (primary) hypertension; E78.5 Hyperlipidemia, unspecified; Z79.84 Long term (current) use of oral hypoglycemic drugs; Z79.899 Other long term (current) drug therapy; Z87.891 Personal history of nicotine dependence; Z90.710 Acquired absence of both cervix and uterus
CPT/HCPCS: 64445; 64447; 80053; 85025; 85027